=== PATIENT | female | born 2000 ===

== ENCOUNTER 2024-11-26 08:29 | Emergency (ER) | payer OTHER, SELFPAY ==
[2024-11-26] VITALS (11 sets, daily range): BP systolic 89–103; BP diastolic 40–68; PULSE 57–110; RESP 10–18; TEMP 36.2–36.9; O2SAT 90–100; BMI 20.2
--- NOTE | 2024-11-26 08:50 | ED.OVERDOSE ---
HPI - Overdose General Chief Complaint: ETOH/Substance Use Stated Complaint: DRUG USE Time Seen by Provider: 11/26/24 08:41 Source: EMS Mode of arrival: EMS Limitations: altered mental status History of Present Illness ED Provider: Dr. Gil Lugo HPI Narrative: 24-year-old female unknown past medical history who was brought to emergency department by EMS for evaluation of adverse reaction to illicit drug. Patient was found in an intersection, acting erratically. On presentation to the emergency department the patient is nonverbal, she has your eyes wide open in his staring around the room, she is agitated and having involuntary jerking movements, not responding to verbal commands. Related Data Allergies Allergy/AdvReac Type Severity Reaction Status Date / Time No Known Allergies Allergy Verified 11/26/24 09:02 Review of Systems Review of Systems: Yes all other systems are reviewed and are negative Physical Exam Vital Signs: Vital Signs: Last Vital Signs Temp 97.2 F 11/26/24 11:34 Pulse 57 11/26/24 13:12 Resp 14 11/26/24 13:12 BP 95/62 11/26/24 13:12 Pulse Ox 96 11/26/24 13:12 O2 Del Method Room Air 11/26/24 13:12 O2 Flow Rate 2 11/26/24 10:00 BMI result Body Mass Index 20.2 Exam: General: Awake, eyes wide open and staring, jerking and involuntary movement, not responding to verbal command Head: Normocephalic, atraumatic EENT: Pupils are 3 mm, equal, reactive to light , Lids normal, sclera normal, conjunctiva normal, nose normal , ears normal, throat without erythema or exudates Lung: breath sounds symmetric, no wheezing, rales or rhonchi Heart: regular rate and rhythm, normal S1, S2 no murmurs or rubs Abdomen: soft, normal bowel sounds Extremities: no deformities, moves all extremities symmetrically, involuntary jerking movements Neuro: Awake, , not responding to verbal stimuli, nonverbal Medications Administered Discontinued Medications Generic Name Dose Route Start Last Admin Trade Name Freq PRN Reason Stop Dose Admin Diphenhydramine HCl 50 mg 11/26/24 08:42 11/26/24 09:00 Diphenhydramine Hcl 50 Mg/Ml Vial IM 11/26/24 08:43 50 mg ONCE ONE Administration Haloperidol Lactate 10 mg 11/26/24 08:50 11/26/24 09:00 Haloperidol Lactate 5 Mg/Ml Vial IM 11/26/24 08:51 10 mg ONCE ONE Administration Sodium Chloride 1,000 mls @ 999 mls/hr 11/26/24 08:51 11/26/24 10:15 Ns IV 11/26/24 09:51 Infused .Q1H1M STA Infusion Midazolam HCl 4 mg 11/26/24 08:42 11/26/24 09:00 Midazolam Hcl 2 Mg/2 Ml Vial IM 11/26/24 08:43 4 mg ONCE ONE Administration Medical Decision Making Medical Decision Making MDM Narrative: 24-year-old female unknown past medical history who was brought to emergency department by EMS for evaluation of adverse reaction to illicit drug. Patient was found in an intersection, acting erratically. On presentation to the emergency department the patient is nonverbal, she has your eyes wide open in his staring around the room, she is agitated and having involuntary jerking movements, not responding to verbal commands. Pupils were 3 mm and reactive the patient is nonverbal, not responding to commands, having jerking and involuntary body movement. Differential diagnosis: ?Includes but is not limited to adverse reaction to illicit drug, alcohol intoxication, rhabdomyolysis, anemia, electrolyte abnormalities Course: 08:57 The patient was brought into the emergency department by EMS, patient's altered, nonverbal, not responding to verbal stimuli, involuntary jerking movements of her body. Patient's presentation is consistent with a an adverse reaction to an illicit drug. There has been many patient's presenting this week with similar findings. Patient grabbed a nurse and tried to get off the stretcher therefore she was placed in 4 point restraints and medicated with Haldol 10 mg, Benadryl 50 mg and Versed 4 mg IM. I ordered the following on this patient: CBC, CMP, CK, drug screen urine, ethanol level, IV insertion, cardiac monitoring, O2 saturation monitoring, normal saline IV x1 L 12:54 My independent interpretation patient's laboratory evaluation is as follows: WBC elevated 14,100. Normocytic anemia with an H&H of 11.7 and 33.5. BUN elevated 22 with a normal creatinine of 1.23. CK elevated 334. LFTs were normal. Ethanol was below detectable limits 14:09 The patient is now awake and alert. She states that she used 1 bag of [place]ian Gangster heroin and then she does not remember what happened after she snorted the drug. The patient does not want to wait and talk to a recovery clinician. I did discuss the fact that almost all street dogs have fentanyl IV and that if she continues to use street drugs she may from a fentanyl overdose. Patient will be discharged home with intranasal Narcan. I strongly advised her to follow up with our comprehensive Care Clinic that can help with her addiction Admission/Observation Consideration of admission/observation: Escalation of care including admission/observation considered (Yes) Lab Data 11/26/24 09:21 11/26/24 09:21 Labs: Lab Results 11/26/24 Range/Units 09:21 WBC 14.1 H (4.8-10.8) X10*3/uL RBC 3.88 L (4.20-5.50) X10*6/uL Hgb 11.7 L (12.0-16.0) g/dl Hct 33.5 L (37.0-47.0) % MCV 86.3 (80.0-98.0) fL MCH 30.2 (27.0-33.0) pg MCHC 34.9 (31.0-35.0) g/dl RDW 13.8 (11.0-16.0) % Plt Count 354 (160-400) X10*3/uL MPV 9.0 L (9.4-12.3) fL Immature Gran % (Auto) 0.6 H (0.0-0.4) % Neut % (Auto) 89.6 H (45-73) % Lymph % (Auto) 7.0 L (20-40) % [place] % (Auto) 2.6 (2-11) % Eos % (Auto) 0.0 (0-4) % Baso % (Auto) 0.2 (0-2) % Lymph # (Auto) 1.0 L (1.2-4.9) X10*3/uL [place] # (Auto) 0.4 (0.1-1.2) X10*3/uL Eos # (Auto) 0.0 (0.0-0.4) X10*3/uL Baso # (Auto) 0.0 (0.0-0.2) X10*3/uL Abs Immat Gran (auto) 0.08 H (0.00-0.03) X10*3/uL Absolute Neuts (auto) 12.6 H (2.0-8.3) x10*3/uL Absolute Nucleated RBC 0.000 (0.0-0.012) X10*3/uL Nucleated RBC % (auto) 0.0 (0.0-0.2) /100WBC Sodium 141 (135-145) mmol/L Potassium 3.7 (3.3-5.1) mmol/L Chloride 108 (96-108) mmol/L Carbon Dioxide 23 (22-29) mmol/L Anion Gap 14 (12-20) BUN 22 H (9-16) mg/dL Creatinine 1.23 (0.5-1.4) mg/dL Estim Creat Clear Calc 52.3 Estimated GFR 53 Random Glucose 97 (60-115) mg/dL Calcium 9.0 (8.4-10.2) mg/dL Magnesium 2.1 (1.6-2.6) mg/dL Total Bilirubin 0.8 (0.0-1.0) mg/dL AST 26 (5-31) U/L ALT 10 (0-31) U/L Alkaline Phosphatase 39 (39-117) U/L Total Creatine Kinase 334 H (26-140) U/L Total Protein 7.4 (6.5-8.0) g/dL Albumin 4.7 (3.5-5.0) g/dL Lipase 11 (8-78) U/L Ethyl Alcohol < 10 mg/dL Critical Care Time Critical Care Time Critical Care Time: Yes Total Critical Care Time: 45 Attestation: Critical Care: The patient was critically ill with a high probability of imminent or life threatening deterioration. I spent greater than 30 minutes of discontinuous time evaluating the patient,delivering critical care at the bedside, discussing and evaluating pertinent data with consultants. Critical care time does not include time spent performing separately billable procedures or teaching. Total time spent performing critical care was 45 minutes. Discharge Plan Discharge Clinical Impression: Overdose, Delirium due to dissociative drug Patient Disposition: Home, Self-Care Additional Instructions: When you came to the emergency department you were not able to talk or answer questions. You were twitching, writhing on the stretcher and your arms and legs were moving in an uncontrolled fashion. We have seen many people in the emergency department over the past several weeks who have use packets of drugs which they thought were heroin and it turns out they have had a similar reaction to you caused by an unknown dissociative drug. This type of reaction is called a dissociative delirium (you are awake but are unaware of what is going on around you). You were restrained and treated with sedative drugs (Haldol, Benadryl and Versed). You were offered counseling by our recovery/care team however you refused counseling at this time. I strongly advise you to follow-up with our Comprehensive Care Clinic to get help with your drug use disorder. Your are being discharged home with intranasal Narcan. If you are going to continue to use heroin or other street drugs, you should make sure that there is a sober person with you that is not using drugs and that this person can administer intranasal Narcan in the event that you stop breathing. Opiate use disorder/drug use disorder If you decide you want to stop or cut down on how much you?re using, you can call or walk into our outpatient Addiction Treatment office: [facility] (M-F 9am-5p) [address] [place] [address], [address] [phone] You were also provided a list of several treatment providers in the area.? If you experience any worsening symptoms you cannot control please return to the ED or call 911. Please follow up at your next appointment. Things to look out for are fevers, chest pain, shortness of breath, severe pain, dizziness, fainting or any other concerns. Print Language: Scottish
--- NOTE | 2024-11-26 09:12 | PC.NURSE ---
security at bedside upon arrival, patient thrashing about during gear changer, unable to redirect. swinging at staff. patient placed in 4 point restraints at 0845, medically restrained 0900. patient observer at bedside for patient safety. belongings placed in [facility]
[2024-11-26 09:25] LABS: MANUAL DIFF FLAG NO
[2024-11-26 09:26] LABS: Hematocrit 33.5 % (37.0-47.0); Hemoglobin 11.7 g/dl (12.0-16.0); Imm Gran Abs Auto 0.08 X10*3/uL (0.00-0.03); Imm Gran Pct Auto 0.6 % (0.0-0.4); Lymphocytes Absolute Auto 1.0 X10*3/uL (1.2-4.9); Mean Corpuscular HGB Conc 34.9 g/dl (31.0-35.0); Mean Corpuscular Hemoglobin 30.2 pg (27.0-33.0); Mean Corpuscular Volume 86.3 fL (80.0-98.0); NRBC Abs Auto 0.000 X10*3/uL (0.0-0.012); NRBC Pct Auto 0.0 /100WBC (0.0-0.2); Platelet Count 354 X10*3/uL (160-400); Red Blood Count 3.88 X10*6/uL (4.20-5.50); White Blood Count 14.1 X10*3/uL (4.8-10.8)
--- NOTE | 2024-11-26 09:27 | PC.NURSE ---
18IV established LAC, labs obtained and sent. fluids infusing. left leg removed from restraints
[2024-11-26 09:46] LABS: Alanine Aminotransferase 10 U/L (0-31); Albumin Level 4.7 g/dL (3.5-5.0); Alkaline Phosphatase 39 U/L (39-117); Anion Gap 14 (12-20); Aspartate Amino Transferase 26 U/L (5-31); Blood Urea Nitrogen 22 mg/dL (9-16); Calcium 9.0 mg/dL (8.4-10.2); Carbon Dioxide 23 mmol/L (22-29); Chloride 108 mmol/L (96-108); Creatinine Clr Calc Pharmacy 52.3; Estimated Glomerular Filt Rate 53; Lipase 11 U/L (8-78); Magnesium 2.1 mg/dL (1.6-2.6); Potassium 3.7 mmol/L (3.3-5.1); Sodium 141 mmol/L (135-145); Total Protein 7.4 g/dL (6.5-8.0)
--- NOTE | 2024-11-26 09:49 | PC.NURSE ---
patient able to be full removed from all 4 restraints at this time, currently resting quietly.
--- NOTE | 2024-11-26 13:13 | PC.NURSE ---
Assumed care of this patient at 1300, patient resting quietly on stretcher, intermittently waking up but immediately going back to sleep. 1:1 christopher Velázquez at bedside.
--- NOTE | 2024-11-26 13:53 | PC.NURSE ---
Patient awake, walked w/ SB assist to BR by Melania HARDING. Requesting to speak to crisis. Called CARE team, they have no knowledge of the patient. Provider Dr. Lugo made aware, will place consult after speaking w/ patient.
--- OUTSIDE RECORDS SUMMARY | 2024-11-26 14:21 | XMS_ITS | Encounter Summary ---
Author Organization [employer] Address [address] [facility] [address] [place] [address] Care Team Providers Care Seamer Elastic Band Name Role Phone Unavailable Primary Care Provider Unavailabl e Encounter Details Date Type Department Care Team (Latest Contact Info) Description 09/15/2020 Abstract [facility] CONVERSIONS Dental, Provider, DDS Social History Tobacco Use Types Packs/Day Years Used Date Smoking Tobacco: Never Assessed Comments Unknown Sex and Gender Information Value Date Recorded Sex Assigned at Female 02/25/2022 10:37 AM EDT Legal Sex Female 10:37 AM EDT Gender Identity Female 02/25/2022 10:37 AM EDT Sexual Orientation Straight 02/25/2022 10 :37 AM EDT documented as of this encounter Plan of Treatment Not on file documented as of this encounter Visit Diagnoses Not on filedocumented in this encounter
--- OUTSIDE RECORDS SUMMARY | 2024-11-26 14:21 | XMS_ITS ---
Author Name [facility] Organization Unknown Care Team Organization Name Specialty Phone Email Start Date End Da te [facility] Sunita De La Rosa Primary Care 09/02/2022 024 [facility] Valentina Flynn MD Primary Care 03/05/2022 12/15/2023
[2024-11-26 14:33] LABS: Cannabinoid Screen Urine POSITIVE (Not Detect)
== END 2024-11-26 14:44 | disposition home or self-care (01) ==
PROVIDERS: Emergency Provider Emergency Medicine Emergency Medical Services; PCP Internal Medicine
DX: T40.1X1A Poisoning by heroin, accidental (unintentional), initial encounter (principal); G25.3 Myoclonus; Y92.411 Interstate highway as the place of occurrence of the external cause; F19.921 Other psychoactive substance use, unspecified with intoxication with delirium; Z51.81 Encounter for therapeutic drug level monitoring
CPT/HCPCS: 36415; 80053; 80307; 82550; 83690; 83735; 85025; 96360; 96372; 99285; 99291; J1200; J1630; J2250

== ENCOUNTER 2025-03-02 06:14 | Emergency (ER) | payer OTHER, SELFPAY ==
[2025-03-02] VITALS (12 sets, daily range): BP systolic 111–139; BP diastolic 55–99; PULSE 66–148; RESP 9–20; TEMP 36.6; O2SAT 95–100; BMI 20.9
--- NOTE | 2025-03-02 06:24 | ECG_ITS ---
Test Reason : OD Blood Pressure : */* mmHG Vent. Rate : 146 BPM Atrial Rate : 146 BPM P-R Int : 122 ms QRS Dur : 70 ms QT Int : 274 ms P-R-T Axes : 79 93 -5 degrees QTcB Int : 426 ms Sinus tachycardia Rightward axis Abnormal QRS-T angle, consider primary T wave abnormality Abnormal ECG No previous ECGs available Referred By: Logan Armijo Electronically Signed By: Marco Antonio Rodriguez
--- NOTE | 2025-03-02 06:25 | ED.OVERDOSE ---
HPI - Overdose General Chief Complaint: ETOH/Substance Use Stated Complaint: polysubstance use, crisis Time Seen by Provider: 03/02/25 06:22 Source: EMS Mode of arrival: EMS Limitations: altered mental status History of Present Illness ED Provider: HPI Narrative: 24-year-old woman with a history of substance use disorder, has been seen at 1 time before this year with a an overdose, presented with reports of overdose, Narcan given apparently by bystanders with significant agitation on the scene for paramedics and PD, presented fighting staff, yelling for help that I am burning , no response to verbal deescalation. Related Data Allergies Allergy/AdvReac Type Severity Reaction Status Date / Time No Known Allergies Allergy Verified 03/02/25 06:37 Review of Systems Constitutional: Constitutional: Reports as per [facility] Past Medical History Source: unable to obtain Social History Social History Advance Directives: No Advance Directives Information Provided: Yes Physical Exam Exam: Exam: General: ?Appears older than stated age ? pupils 3 mm reactive bilaterally ? Neck: Moving her neck in all directions ? ?CV: Tachycardic and regular ? ?Resp: ?No wheezing rales rhonchi no stridor moving air well, tachypneic ? Abd: ?Bowel sounds are present, no distention noted ? ?MSK: No obvious deformities moving her extremities symmetrically ? Skin: Warm, dry, intact, ? ?Neuro: ?Alert , agitated not oriented moving upper and lower extremities symmetrically, no obvious facial asymmetry noted, Vital Signs: Vital Signs: Last Vital Signs Temp 97.9 F 03/02/25 14:17 Pulse 67 03/02/25 15:51 Resp 10 L 03/02/25 15:51 BP 130/99 H 03/02/25 15:51 Pulse Ox 96 03/02/25 15:51 O2 Del Method Room Air 03/02/25 15:51 O2 Flow Rate 2 03/02/25 07:15 Oxygen Flow Rate 4 03/02/25 06:28 BMI result Body Mass Index 20.9 Medications Administered Generic Name Dose Route Start Last Admin Trade Name Freq PRN Reason Stop Dose Admin Lactated Ringer's 1,000 mls @ 0 mls/hr 03/02/25 07:30 03/02/25 09:15 Lr IV Infused .Q0M MANUEL Infusion Wide Open Discontinued Medications Generic Name Dose Route Start Last Admin Trade Name Genesis PRN Reason Stop Dose Admin Diazepam 5 mg 03/02/25 06:22 03/02/25 06:30 Diazepam 10 Mg/2 Ml Cartridge IM 03/02/25 06:23 5 mg STAT STA Administration Haloperidol Lactate 5 mg 03/02/25 06:39 03/02/25 06:45 Haloperidol Lactate 5 Mg/Ml Vial IM 03/02/25 06:40 5 mg STAT STA Administration Ketamine HCl 250 mg 03/02/25 06:22 03/02/25 06:15 Ketamine Hcl 500 Mg/5 Ml Vial IM 03/02/25 06:23 250 mg ONCE ONE Administration Naloxone HCl 8 mg 03/02/25 06:26 03/02/25 14:19 Naloxone Hcl Nasal Take Home 4 Mg [place] NOSTRILALT 03/02/25 06:27 8 mg ONCE ONE Administration Medical Decision Making Medical Decision Making [facility] Narrative: 6:30 AM 03/02/2025 (Dr. Logan Armijo): Likely psychosis related to polypharmacy, received Narcan, became severely agitated, presented with significant risk to self and others, no obvious trauma noted, initial step was to transfer to the [facility] with physical non chemical restraints, I administered initially 250 mg of ketamine and then approximately 10 minutes later 5 mg of intramuscular Valium with a good response at that point, we will continue to re-evaluate, [id number] done, after patient is clinically sober I believe giving her age and the fact that we do not know her in the system this well she would benefit from speaking to gymnastics coach and we can let her know what resources are available. At least of the time of my initial evaluation giving a presentation without any obvious trauma did not feel further imaging such as CT brain is indicated 3:25 PM 03/02/2025 (Dr. Logan Armijo): Patient is currently speaking to care team, she is interested in outpatient detox but I spoke to the care team the spoke to her parents and patient is going to be going to court tomorrow and we will be section 35 Differential Diagnosis Differential Diagnoses: The differential diagnosis associated with the presentation includes (Overdose, chemical induced psychosis, head injury, DKA, dehydration, rhabdomyolysis) Admission/Observation Consideration of admission/observation: Escalation of care including admission/observation considered Lab Data [facility] Lab Attestation statement: I reviewed the patient's lab results. 03/02/25 06:44 03/02/25 06:44 Labs: Lab Results 03/02/25 Range/Units 06:44 WBC 12.3 H (4.8-10.8) X10*3/uL RBC 4.37 (4.20-5.50) X10*6/uL Hgb 12.7 (12.0-16.0) g/dl Hct 38.8 (37.0-47.0) % MCV 88.8 (80.0-98.0) fL MCH 29.1 (27.0-33.0) pg MCHC 32.7 (31.0-35.0) g/dl RDW 14.0 (11.0-16.0) % Plt Count 420 H (160-400) X10*3/uL MPV 9.2 L (9.4-12.3) fL Immature Gran % (Auto) 0.4 (0.0-0.4) % Neut % (Auto) 74.4 H (45-73) % Lymph % (Auto) 19.7 L (20-40) % [place] % (Auto) 4.6 (2-11) % Eos % (Auto) 0.7 (0-4) % Baso % (Auto) 0.2 (0-2) % Lymph # (Auto) 2.4 (1.2-4.9) X10*3/uL [place] # (Auto) 0.6 (0.1-1.2) X10*3/uL Eos # (Auto) 0.1 (0.0-0.4) X10*3/uL Baso # (Auto) 0.0 (0.0-0.2) X10*3/uL Abs Immat Gran (auto) 0.05 H (0.00-0.03) X10*3/uL Absolute Neuts (auto) 9.1 H (2.0-8.3) x10*3/uL Absolute Nucleated RBC 0.000 (0.0-0.012) X10*3/uL Nucleated RBC % (auto) 0.0 (0.0-0.2) /100WBC Sodium 148 H (135-145) mmol/L Potassium 4.0 (3.3-5.1) mmol/L Chloride 107 (96-108) mmol/L Carbon Dioxide 26 (22-29) mmol/L Anion Gap 19 (12-20) BUN 14 (9-16) mg/dL Creatinine 1.05 (0.5-1.4) mg/dL Estim Creat Clear Calc 58.3 Estimated GFR > 60 Random Glucose 138 H (60-115) mg/dL Calcium 9.6 D (8.4-10.2) mg/dL Total Bilirubin 0.6 (0.0-1.0) mg/dL AST 91 H (5-31) U/L ALT 59 H (0-31) U/L Alkaline Phosphatase 54 (39-117) U/L Total Creatine Kinase 2225 H (26-140) U/L Total Protein 8.2 H (6.5-8.0) g/dL Albumin 5.4 H (3.5-5.0) g/dL Lipase 15 (8-78) U/L Beta HCG, Quant < 2 mIU/mL Ethyl Alcohol < 10 mg/dL Independent Interpretation I performed an independent interpretation of an: EKG (146 beats per minute, no QTC prolongation, no underlying dysrhythmia) Independent Historian Clinical information obtained from an independent historian. History obtained from or confirmed by: EMS Social Determinants Patient?s care significantly limited by Social Determinants of Health including: Alcoholism and drug addiction in family and Problems related to primary support group Critical Care Time Critical Care Time Total Critical Care Time: 35 Attestation: Time is exclusive of separately billable procedures. Time includes: direct patient care, patient reassessment, coordination of patient care, interpretation of data (laboratory data, pulse oximetry, arterial blood gases and chest xrays), review of patient's medical records, medical consultation and documentation of patient care. Procedures excluded from critical care time: central intravenous line placement and electrocardiography. Discharge Plan Discharge Clinical Impression: Acute psychosis, Polysubstance abuse Drug-induced psychotic disorder Qualifiers: Complication of substance-induced condition: with unspecified complication Qualified Code(s): F19.959 - Other psychoactive substance use, unspecified with psychoactive substance-induced psychotic disorder, unspecified Patient Disposition: Home, Self-Care Additional Instructions: Opiate use disorder You were seen in our Emergency Department today for treatment of opiate use disorder. You may have been dosed with medication for opiate use disorder (MOUD) in the form of suboxone or methadone. You may experience feeling some withdrawal symptoms and this is normal. The? dose in the Emergency Department is a starting dose and meant to be titrated up once you follow up with a clinic. Please do not feel discouraged, it is a process. The nurse has reviewed with you where to follow up and what information to bring with you, to continue treatment. You also may have been given naloxone (narcan) to take home with you. This medication is used to potentially treat opiate overdose. If you decide you want to stop or cut down on how much you?re using, you can call or walk into our outpatient Addiction Treatment office: [facility] (M-F 9am-5p) [address] [place] [address], [address] [phone] You may have been provided with safer injection?items, please take time to take care of YOU and your health. Use new supplies whenever possible to lessen the chances of infections and other illnesses.? ?If you need more supplies, please go [facility],? [address] [place] [address] OR you can call or text to coordinate delivery of safer supplies. You were also provided a list of several treatment providers in the area.? If you experience any worsening symptoms you cannot control please return to the ED or call 911. Please follow up at your next appointment. Things to look out for are fevers, chest pain, shortness of breath, severe pain, dizziness, fainting or any other concerns. Print Language: Malagasy
[2025-03-02] MEDS: diazePAM 10 MG/2 ML CARTRIDGE 5 MG IM (06:30)
--- NOTE | 2025-03-02 06:37 | PC.NURSE ---
pt BIBA for polysubstance use, upon arrival pt noted to be yelling and thrashing, unable to follow basic commands and not answering questions appropriately
--- NOTE | 2025-03-02 06:38 | PC.NURSE ---
pt placed on monitor tech, EKG obtained, medicated per JUN, pt SPO2 dropped to 76% on RA pt placed on 4L NC w. improvement to 98%
[2025-03-02 06:49] LABS: MANUAL DIFF FLAG NO
[2025-03-02 06:55] LABS: Hematocrit 38.8 % (37.0-47.0); Hemoglobin 12.7 g/dl (12.0-16.0); Imm Gran Abs Auto 0.05 X10*3/uL (0.00-0.03); Imm Gran Pct Auto 0.4 % (0.0-0.4); Lymphocytes Absolute Auto 2.4 X10*3/uL (1.2-4.9); Mean Corpuscular HGB Conc 32.7 g/dl (31.0-35.0); Mean Corpuscular Hemoglobin 29.1 pg (27.0-33.0); Mean Corpuscular Volume 88.8 fL (80.0-98.0); NRBC Abs Auto 0.000 X10*3/uL (0.0-0.012); NRBC Pct Auto 0.0 /100WBC (0.0-0.2); Platelet Count 420 X10*3/uL (160-400); Red Blood Count 4.37 X10*6/uL (4.20-5.50); White Blood Count 12.3 X10*3/uL (4.8-10.8)
[2025-03-02 07:17] LABS: Alanine Aminotransferase 59 U/L (0-31); Albumin Level 5.4 g/dL (3.5-5.0); Alkaline Phosphatase 54 U/L (39-117); Anion Gap 19 (12-20); Aspartate Amino Transferase 91 U/L (5-31); Blood Urea Nitrogen 14 mg/dL (9-16); Calcium 9.6 mg/dL (8.4-10.2); Carbon Dioxide 26 mmol/L (22-29); Chloride 107 mmol/L (96-108); Creatinine Clr Calc Pharmacy 58.3; Estimated Glomerular Filt Rate > 60; Lipase 15 U/L (8-78); Potassium 4.0 mmol/L (3.3-5.1); Sodium 148 mmol/L (135-145); Total Protein 8.2 g/dL (6.5-8.0)
--- NOTE | 2025-03-02 07:30 | PC.NURSE ---
pt is sleeping, calm and cooperative, at this time all 4 restrains are removed at this time, sitter at bedside
[2025-03-02] MEDS: Lactated Ringers 1,000 ML 250 ML IV (07:38)
--- OUTSIDE RECORDS SUMMARY | 2025-03-02 08:01 | XMS_ITS | Clinical Summary ---
Author Organization [employer] Address [address] [facility] [address] [place] [address] Care Team Providers Care Farm Rancher Name Role Phone Unavailable Primary Care Provider Unavailabl e Social History Tobacco Use Types Packs/Day Years Used Date Smoking Tobacco: Never Assessed Comments Unknown Sex and Gender Information Value Date Recorded Sex Assigned at Female 02/25/2022 10:37 AM EDT Legal Sex Female 10:37 AM EDT Gender Identity Female 02/25/2022 10:37 AM EDT Sexual Orientation Straight 02/25/2022 10 :37 AM EDT Plan of Treatment Health Maintenance Due Date Last Done Comments Depression Screening 1998 Disability Screening 1998 Alcohol/Substance Use Screening 2010 Tobacco Screening 2010 Family Planning (PISQ) 2013 HPV Vaccines (1 - 3-dose series) 2013 DTaP/Tdap/Td Vaccines (1 - Tdap) 2017 Hepatitis B Vaccines (1 of 3 - 19+ 3-dose series) 2017 Pap Smear 07/18/2019 COVID-19 Vaccine (1 - 2023-2 5 season) 2024 Influenza Vaccine (#1) 2024 Zoster Vaccines (1 of 2) 2048 RSV Patients and Pa tients Aged 60 years or older (1 - 1-dose 75+ series) 2073 HIB Vaccines Aged Out No longer eligi ble based on patient's age to complete this topic Hepatitis A Vaccines Aged Out No long er eligible based on patient's age to complete this topic IPV Vaccines Aged Out No longer eligi ble based on patient's age to complete this topic Meningococcal B Vaccine Aged Out No l onger eligible based on patient's age to complete this topic Meningococcal Vaccine Aged Out No emche sarah eligible based on patient's age to complete this topic Pneumococcal Vaccine: Pediat rics (0 to 5 Years) and At-Risk Patients (6 to 49) Years Aged Out No longer eligible b ased on patient's age to complete this topic RSV under 20 months Aged Out No longe r eligible based on patient's age to complete this topic Rotavirus Vaccines Aged Out No longer eligible based on patient's age to complete this topic
--- OUTSIDE RECORDS SUMMARY | 2025-03-02 08:01 | XMS_ITS | Encounter Summary ---
Author Organization [employer] Address [address] [facility] [address] [place] [address] Care Team Providers Care Power Plant Operator Name Role Phone Unavailable Primary Care Provider Unavailabl e Encounter Details Date Type Department Care Team (Latest Contact Info) Description 09/15/2020 Abstract [facility] CONVERSIONS Dental, Provider, DDS Social History Tobacco [...]
--- NOTE | 2025-03-02 09:38 | PC.NURSE ---
pt continuos on sleeping respirations even and unlabored, sitter in place, vs stable
[2025-03-02] MEDS: Naloxone HCl Nasal TAKE HOME 4 MG SPRAY 8 MG NOSTRILALT (14:19)
[2025-03-02 16:09] LABS: Cannabinoid Screen Urine POSITIVE (Not Detect)
== END 2025-03-02 16:30 | disposition home or self-care (01) ==
PROVIDERS: Emergency Provider Emergency Medicine; PCP Internal Medicine
DX: F23 Brief psychotic disorder (principal); F19.10 Other psychoactive substance abuse, uncomplicated; R00.0 Tachycardia, unspecified; R94.31 Abnormal electrocardiogram [ECG] [EKG]
CPT/HCPCS: 36415; 80053; 80307; 82550; 83690; 84702; 85025; 93005; 96360; 96361; 96375; 99284; 99285; J1630; J3360; J7120; S9485

== ENCOUNTER → 2025-03-02 06:24 | Outpatient (BNV) | payer OTHER, SELFPAY | PROVIDERS: Emergency Provider Emergency Medicine; PCP Internal Medicine; Visit Provider Internal Medicine Cardiovascular Disease | DX: R00.0 Tachycardia, unspecified (principal) | CPT/HCPCS: 93010 ==